=== PATIENT | female | born 1975 | race Caucasian/White ===

== ENCOUNTER 2022-06-13 12:39 | Emergency (ER) | payer BC, MEDICAID, SELFPAY ==
[2022-06-13 12:51] VITALS: BP 123/77; PULSE 83; RESP 20; TEMP 36.8; O2SAT 99
--- NOTE | 2022-06-13 12:54 | DI.US_ITS ---
Exam(s) US PELVIS TRANSVAGINAL EXAM: US PELVIS TRANSVAGINAL CLINICAL HISTORY: dysmenorrhea, menorrhagia TECHNIQUE: Ultrasound of the pelvis was performed both transabdominal and transvaginal. COMPARISON: No exams were available for comparison Apparently this FINDINGS: UTERUS: Heterogeneous Measures 6 cm length x 5.5 cm AP x 5.6 cm wide. There are no obvious uterine fibroids.However, the appearance is that of probable adenomyomatosis. Endometrial thickness measures 6 mm. At the level the fundus. There is no fluid in the endometrial canal. CERVIX: There are no obvious nabothian cysts. RIGHT OVARY: Measures 2.2 by 1.8 x 1.6 cm and appears age-appropriate. No significant cysts nor masses evident in the right ovary. LEFT OVARY: Not identified. CUL-DE-SAC: No free fluid evident. IMPRESSION: 1. Appearance of the uterus probably implies adenomyomatosis. No truly discernible fibroids evident. 2. Left ovary is not identified and may be surgically absent (patient claims she had remote ectopic p regnancy surgery but does not remember which side) 3. Right ovary appears unremarkable. 4. There are no obvious extraovarian adnexal masses and there is no fluid in the adnexal regions and cul-de-sac. Discussed with ER provider. DATA REPOSITORY:
[2022-06-13] MEDS: Lactated Ringers 1,000 ML 1000 ML IV (13:31)
[2022-06-13 13:36] LABS: Abs Immature Grans 0.01 10^3/uL (0.0-0.06); Absolute Basophil Count 0.03 10^3/uL (0.0-0.2); Absolute Eosinophil Count 0.06 10^3/uL (0.0-0.7); Absolute Lymphocyte Count 2.43 10^3/uL (1.2-3.4); Absolute Monocyte Count 0.32 10^3/uL (0.1-0.8); Absolute Neutrophil Count 4.21 10^3/uL (1.2-6.7); Basophils % 0.4; Eosinophils % 0.8; HCT 36.2 % (36.0-46.0); Immature Grans % 0.1; Lymphocytes % 34.4; MCH 30.5 pg (27.0-33.0); MCHC 33.1 % (32.0-36.0); MCV 92 fL (80-95); MPV 9.5 fL (8.0-11.0); Monocytes % 4.5; Neutrophils % 59.8; Platelet Count 283 10^3/uL (130-400); RBC 3.93 10^6/uL (3.93-5.22); RDW 13.8 % (11.7-14.6); RDW-SD 46.9 fL; WBC 7.06 10^3/uL (4.4-10.8)
[2022-06-13 13:51] LABS: ALT 24 U/L (14-59); AST 13 U/L (15-37); Albumin 3.6 g/dL (3.4-5.0); Alkaline Phosphatase 47 U/L (46-116); Anion Gap 8.5 mmol/L (3-11); BUN 17 mg/dL (7-18); Bilirubin, Total 0.4 mg/dL (0.2-1.0); CO2 26.5 mmol/L (21.0-32.0); CREATININE 0.8 mg/dL (0.55-1.02); Calcium 8.7 mg/dL (8.5-10.1); Chloride 106 mmol/L (98-107); Estimated GFR 90.27 (mL/min/1.73m2); Glucose 161 mg/dL (74-106); Potassium 3.7 mmol/L (3.5-5.1); Sodium 141 mmol/L (136-145)
[2022-06-13] MEDS: Norethindrone 5 MG TAB PO (14:45)
--- NOTE | 2022-06-13 15:07 | W.ED.GENAD ---
Discharge Plan Disposition Patient Disposition: Home Discharge Details Clinical Impression: Vaginal bleeding Primary Care Provider: Dina Soto ED Provider: Shabana Bergman Home Meds and New Rx's Prescriptions: New tranexamic acid 650 mg tablet 1,300 mg PO TID Qty: 15 0RF Continued gabapentin 300 mg Capsule 300 mg PO PRN PRN (Reason: Sleep) vitamin B complex Capsule 1 cap PO DAILY glucosamine-chondroitin [Osteo Bi-Flex] 250-200 mg Tablet 1 tab PO DAILY Vitamin D3 Complete 18 mg iron-800 mcg-150 mg Tablet 1 tab PO DAILY Discharge Instructions Additional Instructions: Please take the tranexamic acid as prescribed Keep yourself hydrated We will notify you regarding abnormal labs when they return, if they are abnormal Please follow-up with your doctor for reassessment at your scheduled appointment next week and return or be reassessed should you have worsening bleeding Referrals: Dina Soto [Primary Care Provider] - Discharge Data Discharge Date/Time-TO BE ENTERED AT DEPARTURE: 06/13/22 18:09 Medical Decision Making This 47-year-old female presents with vaginal bleeding for the past 24 hours, but longstanding history of menometrorrhagia, with IUD displaced 1 week prior CBC and CMP within normal limits, negative test, will hemodynamically stable After long discussion, patient states that progesterone tends to make her experience severe depression and suicidality, will hold off on giving her take on progesterone, she would like to take tranexamic acid, we discussed the risk of coagulopathy associated with taking this medication and she will discontinue her NuvaRing and any exogenous hormones while she is taking TXA She will follow-up with [facility], she reportedly has appointment next week Her ultrasound was ordered secondary to cramping, shows thickened endometrial layer, she will follow-up with her [facility] regarding this finding, case discussed with Dr. Barros, radiology, no evidence of ectopic At this time, her bleeding is slowed, she is hemodynamically stable and will be discharged home pending STD swabs, HIV, hepatitis, and RPR, Return precautions reviewed and patient expressed understanding Medical Records Medical records reviewed: Yes I reviewed the patient's medical records. HPI General Date/Time Provider Initiated Documentation: 06/13/22 12:48. HPI Narrative: This 47-year-old female presents with report of significant vaginal bleeding, history of adenomyosis states that progesterone IUD fell out last week on vacation. States she has cramping associated with the pain, has had 4 capfuls of bloody clots in the past several hours. Feels slightly lightheaded. History of metromenorrhagia. Still has NuvaRing in place per patient. Related Data Home Medications Medication Instructions Recorded Confirmed gabapentin 300 mg capsule 300 mg PO PRN PRN Sleep 06/13/22 06/13/22 glucosamine-chondroitin 250 mg-200 1 tab PO DAILY 06/13/22 06/13/22 mg tablet (Osteo Bi-Flex) multivit with 1 tab PO DAILY 06/13/22 06/13/22 [id number] 18 mg iron-800 mcg-150 mg tablet (Vitamin D3 Complete) tranexamic acid 650 mg tablet 1,300 mg PO TID #15 tabs 06/13/22 vitamin B complex 1 cap PO DAILY 06/13/22 06/13/22 Previous Rx's Medication Instructions Recorded tranexamic acid 650 mg tablet 1,300 mg PO TID #15 tabs 06/13/22 Allergies Allergy/AdvReac Type Severity Reaction Status Date / Time amoxicillin Allergy Intermediate Hives Unverified 06/13/22 13:33 codeine Allergy Intermediate Skin Rash Unverified 06/13/22 13:33 latex Allergy Intermediate Skin Rash Unverified 06/13/22 13:33 nitrofurantoin Allergy Intermediate Hives Unverified 06/13/22 13:33 [From Macrobid] orange Allergy Intermediate Skin Rash Unverified 06/13/22 13:33 erythromycin base AdvReac Intermediate Nausea Unverified 06/13/22 13:33 General Stated Complaint: [facility] IRENE: 3 PFSH All Active Problems (Updated 06/13/22 @ 16:07 by CARLYLE Villanueva) Vaginal bleeding (Acute) Social History Smoking/Tobacco Use Status: Never Smoking risk assessment performed?: Yes Alcohol Intake: current Alcohol Intake frequency: holidays/special occasions only Drug use: Rarely Substance use type: marijuana Do you feel safe at home: Yes Do you feel safe in your relationship?: Yes Exam Const General: cooperative, comfortable and no acute distress Resp Effort & Inspection: normal respiratory effort Cardio Rate: regular rate GI Other: Mild suprapubic tenderness, no rebound or guarding Skin General skin exam: no rashes or lesions noted Course Vital Signs Vital signs: Vital Signs Temperature 36.8 C 06/13/22 12:51 Pulse 83 06/13/22 12:51 Respiratory Rate 20 06/13/22 12:51 Blood Pressure 123/77 06/13/22 12:51 Pulse Oximetry 99 06/13/22 12:51 Temperature 36.8 C 06/13/22 12:51 Temperature Source Oral 06/13/22 12:51 Pulse 83 06/13/22 12:51 Respiratory Rate 20 06/13/22 12:51 Respiratory Effort Normal, Non-Labored 06/13/22 13:10 Blood Pressure 123/77 06/13/22 12:51 Blood Pressure Position Sitting 06/13/22 12:51 Pulse Oximetry 99 06/13/22 12:51 Oxygen Delivery Method Room Air 06/13/22 12:51 Oxygen Flow Rate 0 06/13/22 12:51 Pain Level 6 06/13/22 12:51 Lab/Test Results Lab/Test Results: Laboratory Tests Range/Units 06/13/22 06/13/22 06/13/22 13:21 13:21 13:21 WBC (4.4-10.8) 10^3/uL 7.06 RBC (3.93-5.22) 10^6/uL 3.93 Hgb (11.2-15.7) g/dL 12.0 Hct (36.0-46.0) % 36.2 MCV (80-95) fL 92 MCH (27.0-33.0) pg 30.5 MCHC (32.0-36.0) % 33.1 RDW (11.7-14.6) % 13.8 Plt Count (130-400) 10^3/uL 283 MPV (8.0-11.0) fL 9.5 Immature Gran % 0.1 Neutrophils % 59.8 Lymphocytes % 34.4 Monocytes % 4.5 Eosinophils % 0.8 Basophils % 0.4 Nucleated RBC % (0.0-0.3) % 0.0 Absolute Neutrophils (1.2-6.7) 10^3/uL 4.21 Absolute Lymphocytes (1.2-3.4) 10^3/uL 2.43 Absolute Monocytes (0.1-0.8) 10^3/uL 0.32 Absolute Eosinophils (0.0-0.7) 10^3/uL 0.06 Absolute Basophils (0.0-0.2) 10^3/uL 0.03 Sodium (136-145) mmol/L 141 Potassium (3.5-5.1) mmol/L 3.7 Chloride (98-107) mmol/L 106 Carbon Dioxide (21.0-32.0) mmol/L 26.5 Anion Gap (3-11) mmol/L 8.5 BUN (7-18) mg/dL 17 Creatinine (0.55-1.02) mg/dL 0.8 Est GFR (CKD-EPI 2020) (mL/min/1.73m2) 90.27 Glucose (74-106) mg/dL 161 H Calcium (8.5-10.1) mg/dL 8.7 Total Bilirubin (0.2-1.0) mg/dL 0.4 AST (15-37) U/L 13 L ALT (14-59) U/L 24 Alkaline Phosphatase (46-116) U/L 47 Total Protein (6.4-8.2) g/dL 7.0 Albumin (3.4-5.0) g/dL 3.6 Patient ABO/Rh A Negative Antibody Screen NEGATIVE
[2022-06-13 15:41] LABS: Bilirubin Negative (Negative); Blood Large (Negative); Clarity Cloudy (Clear); Glucose Negative (Negative); Ketones Negative (Negative); Leukocyte Esterase Negative (Negative); Nitrite Negative (Negative); Urobilinogen 0.2 mg/dL (Up to 0.2)
[2022-06-13 15:49] LABS: Bacteria Negative HPF (Negative); C & S Indicated? No; Casts Negative LPF (Negative); Crystals Negative HPF (Negative); Epithelial Cells Few HPF (Negative); Mucus Trace (Negative); RBC >50 HPF (0-2); WBC 0-2 HPF (0-5)
[2022-06-13 16:11] VITALS: BP 139/71; PULSE 72; RESP 16; O2SAT 100
[2022-06-15 12:34] LABS: Chlamydia Result Negative (Negative); GC Result Negative (Negative)
[2022-06-16 10:02] LABS: HIV-1/2 Ag & Ab Screen Negative (Negative)
[2022-06-16 10:40] LABS: Syphilis Serology (RPR) Negative (Negative)
[2022-06-16 10:41] LABS: Hepatitis A Antibody IgM Negative (Negative); Hepatitis B Core Antibody Negative (Negative); Hepatitis B surface Ag Negative (Negative); Hepatitis C Ab w Rflx HCV PCR Negative (Negative)
== END 2022-06-13 18:09 | disposition home or self-care (01) ==
PROVIDERS: Emergency Provider Physician Assistant; PCP Family Medicine
DX: N93.9 Abnormal uterine and vaginal bleeding, unspecified (principal)
CPT/HCPCS: 36415; 80053; 81025; 86704; 86709; 86803; 86850; 86900; 86901; 87340; 87389; 87491; 87591; 87661; 96360; 96361; 99284; 76830; 76856; 81003; 81015; 85025; 86592; 99283